=== PATIENT | female | born 1995 | race Caucasian/White ===

== ENCOUNTER 2020-04-18 16:38 | Outpatient (REF) | payer OTHER, SELFPAY ==
[2020-04-18 17:34] LABS: COVID-19 Test Negative (Negative)
== END 2020-04-18 16:39 | disposition home or self-care (01) ==
LOC: HO.LAB 16:38
PROVIDERS: Visit Provider Internal Medicine
DX: Z20.828 Contact with and (suspected) exposure to other viral communicable diseases (principal)
CPT/HCPCS: 87635

== ENCOUNTER 2020-04-21 13:32 | Outpatient (REF) | payer OTHER, SELFPAY ==
[2020-04-21 13:54] LABS: COVID-19 Test Negative (Negative)
== END 2020-04-21 13:33 | disposition home or self-care (01) ==
LOC: HO.LAB 13:32
PROVIDERS: Visit Provider Internal Medicine
DX: Z20.828 Contact with and (suspected) exposure to other viral communicable diseases (principal)
CPT/HCPCS: 87635

== ENCOUNTER 2020-05-02 14:52 | Outpatient (REF) | payer OTHER, SELFPAY | END 2020-05-02 14:53 | disposition home or self-care (01) | LOC: HO.LAB 14:52 | PROVIDERS: Visit Provider Internal Medicine | DX: Z20.828 Contact with and (suspected) exposure to other viral communicable diseases (principal) | CPT/HCPCS: C9803; U0003 ==